=== PATIENT | female | born 1955 | race Caucasian/White ===

== ENCOUNTER 2017-05-10 14:48 | Emergency (ER) | payer OTHER ==
[~2017-05-10] VITALS: Wt 86.0 kg
[2017-05-10] MEDS ORDERED: KETOROLAC 15 MG INJ IM STA (15:25)
--- NOTE | 2017-05-10 15:25 | ERD ---
ER Documentation Chief Complaint Date/Time DATE: 05/10/17 TIME: 15:16 Chief Complaint ANXIETY, HEADACHE, AFTER TALKING TO INSURANCE [employer], NO CP HPI This 61-year-old female presents to emergency department for chest tightness., hypertension, headache, and anxiety off Escitalopram x 2 weeks, patient states that she was on medication for 2 months prescribed by her primary physician on her physical exam this year she was diagnosed with depression and anxiety. Patient states she developed hypertension while on the medication, she sees a psychotherapist who suggested talking to her doctor about a medication change if she was not feeling better after 2 months. Patient talked to her physician and discuss going off the medication but has not been placed on any new medication. Patient is waiting for a Psychiatrist appointment. Patient reports here today today because stress with insurance , SOB, crying and headache. now VERDUZCO occipital and " whole head, pt reports pain 04/09 BP 189/80 took Ativan 1 mg at 1400 with little change in symptoms. States she went to urgent care and was told that they no longer were contracted for [facility]. She denies shortness of breath, palpitations, dizziness, change in vision or behavior. Denies suicidal or homicidal ideation ROS All systems reviewed and are negative except as per history of present illness. Allergies Allergies: Coded Allergies: No Known Allergy (Unverified , 05/10/17) Physical Exam Vitals Vital Signs Date Time Temp Pulse Resp B/P Pulse Ox O2 Delivery O2 Flow Rate FiO2 05/10/17 14:52 98.1 84 17 176/79 97 Vitals stable, hypertension at 176/79 with headache Physical Exam Const: [] Head: Atraumatic Eyes: Normal Conjunctiva ENT: Normal External Ears, Nose and Mouth. Neck: Full range of motion..~ No meningismus. Resp: Clear to auscultation bilaterally Cardio: Regular rate and rhythm, no murmurs Abd: Soft, non tender, non distended. Normal bowel sounds Skin: No petechiae or rashes Back: No midline or flank tenderness Ext: No cyanosis, or edema Neur: Awake and alert Psych: Normal Mood and Affect Result Diagram: 05/10/17 1550 05/10/17 1550 Results 24 hrs Laboratory Tests Test 05/10/17 15:50 White Blood Count 6.610^3/ul Red Blood Count 4.3510^6/ul Hemoglobin 13.8g/dl Hematocrit 39.5% Mean Corpuscular Volume 90.8fl Mean Corpuscular Hemoglobin 31.7pg Mean Corpuscular Hemoglobin Concent 34.9g/dl Red Cell Distribution Width 12.2% Platelet Count 67732^3/UL Mean Platelet Volume 9.9fl Neutrophils % 60.1% Lymphocytes % 29.7% Monocytes % 7.2% Eosinophils % 2.1% Basophils % 0.6% Nucleated Red Blood Cells % 0.0/100WBC Neutrophils # 4.010^3/ul Lymphocytes # 2.010^3/ul Monocytes # 0.510^3/ul Eosinophils # 0.110^3/ul Basophils # 0.010^3/ul Nucleated Red Blood Cells # 0.010^3/ul Sodium Level 145mmol/L Potassium Level 4.3mmol/L Chloride Level 107mmol/L Carbon Dioxide Level 25mmol/L Anion Gap 17 Blood Urea Nitrogen 16mg/dl Creatinine 0.70mg/dl Glucose Level 78mg/dl Calcium Level 9.5mg/dl Total Bilirubin 0.2mg/dl Direct Bilirubin 0.00mg/dl Indirect Bilirubin 0.2mg/dl Aspartate Amino Transf (AST/SGOT) 20IU/L Alanine Aminotransferase (ALT/SGPT) 32IU/L Alkaline Phosphatase 70IU/L Troponin I < 0.012ng/ml Total Protein 7.8g/dl Albumin 5.0g/dl Globulin 2.80g/dl Albumin/Globulin Ratio 1.78 Current Medications Medications (Trade) Dose Ordered Sig/Stephani Route PRN Reason Start Time Stop Time Status Last Admin Dose Admin Diphenhydramine HCl (Benadryl) 25 mg ONCE ONCE IM 05/10/17 15:30 05/10/17 16:16 DC Metoclopramide HCl (Reglan) 10 mg ONCE ONCE IM 05/10/17 15:30 05/10/17 16:16 DC Ketorolac Tromethamine (Toradol) 15 mg ONCE STAT IM 05/10/17 15:25 05/10/17 16:16 DC Diphenhydramine HCl (Benadryl) 25 mg ONCE ONCE IV 05/10/17 16:30 05/10/17 16:31 DC 05/10/17 16:18 Ketorolac Tromethamine (Toradol) 15 mg ONCE STAT IV 05/10/17 16:14 05/10/17 16:16 DC 05/10/17 16:18 Metoclopramide HCl (Reglan) 10 mg ONCE ONCE IV 05/10/17 16:30 05/10/17 16:31 DC 05/10/17 16:18 Interpretation text CBC shows no evidence of hemorrhage or infection Chemistry shows no evidence of significant electrolyte abnormalities or renal insufficiency Liver function tests shows no evidence of acute biliary or hepatic dysfunction Cardiac biomarkers show no evidence of acute myocardial injury or coronary ischemia Procedures/MDM EKG: Rate/Rhythm: Normal Sinus Rhythm at a ventricular rate of 73 bpm QRS, ST, T-waves: No changes consistent w/ acute ischemia Impression: No evidence of ischemia or arrhythmia This 61-year-old female presents to emergency department with chest tightness, headache, hypertension, and anxiety. Patient reports hypertension for the last 2 months not treated with any antihypertensive medication, weight loss or exercise program. Patient states hypertension started after taking Lexapro, which she no longer is taking. Patient has 1 mg of Ativan which she uses as needed for anxiety attacks. Patient denies any suicidal or homicidal ideation, denies history of coronary artery disease, diabetes, hypertension 176 systolic today in emergency department patient will be evaluated for chest pain with routine laboratory testing, and one troponin, EKG is normal sinus rhythm at a ventricular rate of 73 bpm without ectopy troponin< 0.012ng/ml Headaches symptoms treated with 25 mg IV Benadryl, 10 mg IV Reglan, and 15 mg IV Toradol, patient reassessed after 30 minutes with improvement in headache symptoms I have low suspicion of acute coronary syndrome pulmonary embolism, ascending aorta aneurysm, pneumonia, or spontaneous pneumothorax. Patient will be discharged home with Valium 5 mg every 8 hours as needed anxiety, [place] 500/325 1 tab every 6 hours as needed headache, patient's daughter is now at bedside reports she has an appointment with a psychiatrist in 6 days. Patient was also instructed to follow-up with primary physician, return to emergency department for elevated blood pressure with headache, nausea, vomiting, chest pain, shortness of breath, change in vision or behavior. I feel the patient is stable for discharge at this time with outpatient management as discussed. I have discussed results, examination findings, the treatment plan with the patient and family present prior to discharge. Indications for emergent reevaluation, side effects of medication were also discussed. All questions were answered. Patient verbalizes understanding and agrees with plan of care. Departure Diagnosis: Primary Impression: Anxiety disorder Anxiety disorder type: unspecified anxiety disorder Qualified Code: F41.9 - Anxiety disorder, unspecified type Additional Impressions: HTN (hypertension) Hypertension type: unspecified secondary hypertension Qualified Code: I15.9 - Secondary hypertension VERDUZCO (headache) Headache type: unspecified Headache chronicity pattern: acute headache Intractability: intractable Qualified Code: R51 - Acute intractable headache , unspecified headache type Patient Instructions: Headache, Unspecified, Hypertension, To Be Confirmed, Understanding Anxiety Disorders [facility] Additional Instructions: Thank you for for coming to [facility] for your care today. Please ask your nurse or provider if you have questions about your care today and do not leave until all your questions have been answered. Please use any medications given as directed and follow-up with your doctor (or the doctor you were referred to) in the next 2-3 days. If you do not have a primary care doctor you may [place] [facility] [place] You may also use motrin and tylenol as needed for fever and/or pain unless instructed otherwise by your provider or nurse. Indications for more urgent follow-up have been discussed, but you may return to the Emergency Department at ANY time for any worrisome or worsening symptoms. If you have abdominal pain, please know that no test or exam you received is perfect and you should follow up within 8 hours for continued pain. If you had any imaging studies today, such as an X-Ray or CT Scan, these studies will be reviewed later by a radiologist. You will be called if there are important findings that were not identified today, so make sure the contact information you provided at registration is correct. If you received any narcotic pain control medicine today, such as Vicodin, Morphine or Dilaudid, your coordination and judgment may be affected for a number of hours. Please do not drive or operate heavy machinery, and you may want someone to assist you at home. If you were given a prescription for narcotic medication, be aware that it is very addictive- use sparingly and only if necessary. MO JULIAN May 10, 2017 15:25
[2017-05-10] MEDS ORDERED: DIPHENHYDRAMINE 50 MG INJ IM ONE (15:30)
[2017-05-10] MEDS ORDERED: METOCLOPRAMIDE 10 MG INJ IM ONE (15:30)
[2017-05-10 16:02] LABS: BASOPHILS % 0.6 % (0.0-2.0); EOSINOPHILS # 0.1 10^3/ul (0.0-0.5); EOSINOPHILS % 2.1 % (0.0-7.0); HEMATOCRIT 39.5 % (37.0-47.0); HEMOGLOBIN 13.8 g/dl (12.0-16.0); LYMPHOCYTES % 29.7 % (15.0-51.0); MEAN CORPUSCULAR HEMOGLOBIN 31.7 pg (29.0-33.0); MEAN CORPUSCULAR HGB CONC 34.9 g/dl (32.0-37.0); MEAN CORPUSCULAR VOLUME 90.8 fl (82.0-101.0); MEAN PLATELET VOLUME 9.9 fl (7.4-10.4); MONOCYTE # 0.5 10^3/ul (0.3-0.9); MONOCYTES % 7.2 % (0.0-11.0); NEUTROPHILS % 60.1 % (39.0-77.0); PLATELET COUNT 213 10^3/UL (140-415); RED BLOOD COUNT 4.35 10^6/ul (4.20-5.40); RED CELL DISTRIBUTION WIDTH 12.2 % (11.5-14.5); WHITE BLOOD COUNT 6.6 10^3/ul (4.8-10.8)
[2017-05-10] MEDS ORDERED: KETOROLAC 15 MG INJ IV STA (16:14)
[2017-05-10 16:19] LABS: ALANINE AMINOTRANSFERASE 32 IU/L (13-69); ALBUMIN/GLOBULIN RATIO 1.78; ALKALINE PHOSPHATASE 70 IU/L (42-121); ANION GAP 17 (8-16); ASPARTATE AMINO TRANSFERASE 20 IU/L (15-46); BILIRUBIN,INDIRECT 0.2 mg/dl (0-1.1); BILIRUBIN,TOTAL 0.2 mg/dl (0.2-1.3); BLOOD UREA NITROGEN 16 mg/dl (7-20); CALCIUM 9.5 mg/dl (8.4-10.2); CARBON DIOXIDE 25 mmol/L (21-31); CHLORIDE 107 mmol/L (97-110); GLUCOSE 78 mg/dl (70-220); POTASSIUM 4.3 mmol/L (3.5-5.1); SODIUM 145 mmol/L (135-144); TOTAL PROTEIN 7.8 g/dl (6.1-8.1)
[2017-05-10] MEDS ORDERED: DIPHENHYDRAMINE 50 MG INJ IV ONE (16:30)
[2017-05-10] MEDS ORDERED: METOCLOPRAMIDE 10 MG INJ IV ONE (16:30)
[2017-05-10 16:33] LABS: TROPONIN-I < 0.012 ng/ml (0.00-0.12)
--- NOTE | 2017-05-10 17:45 | RADRPT ---
PROCEDURE: Chest x-ray CLINICAL INDICATION: Chest pain and hypertension TECHNIQUE: Chest 2 views COMPARISON: None FINDINGS: The heart is normal in size. The pulmonary vessels are normal in caliber. The lungs are clear. Th e costophrenic angles are sharp. The visualized bony thorax is unremarkable. IMPRESSION: No acute cardiopulmonary disease. RPTAT: HH .Santosh Quevedo MD, Date Time Electronically viewed and signed by .Santosh Quevedo MD, MD on 05/10/2017 17:44 .W/
[2017-05-10 18:50] VITALS: BP 116/55; PULSE 60; RESP 16; TEMP 98.2
[2017-05-10] MEDS ORDERED: DIAZ-90 PO (18:59)
[2017-05-10] MEDS ORDERED: HYDR-906 PO (18:59)
== END 2017-05-10 19:06 | disposition home or self-care (01) ==
LOC: FTE 14:48
DX: F41.9 Anxiety disorder, unspecified (principal); I10 Essential (primary) hypertension; R51 Headache
CPT/HCPCS: 71020; 80053; 84484; 85025; 93005; 96374; 96375; J1200; J1885; J2765; Z7502